=== PATIENT | male | born 2000 | race Caucasian/White ===

== ENCOUNTER 2023-09-19 21:08 | Emergency (ER) | payer OTHER ==
[~2023-09-19] VITALS: Ht 182.9 cm; Wt 136.4 kg
[2023-09-19 21:18] VITALS: BP 139/61; PULSE 91; RESP 14; O2SAT 98
[2023-09-20] MEDS ORDERED: IBUP-1456 PO (00:21)
== END 2023-09-20 01:10 | disposition home or self-care (01) ==
LOC: ER 21:08
DX: M25.562 Pain in left knee (principal); V49.49XA Driver injured in collision with other motor vehicles in traffic accident, initial encounter; Y93.89 Activity, other specified; Y92.410 Unspecified street and highway as the place of occurrence of the external cause; Y99.8 Other external cause status
CPT/HCPCS: 73562